=== PATIENT | female | born 1960 | race Two or more races ===

== ENCOUNTER 2023-03-02 17:16 | Emergency (ER) | payer MEDICAID ==
[~2023-03-02] VITALS: Ht 162.6 cm; Wt 64.3 kg
[2023-03-02 17:37] VITALS: BP 192/88; PULSE 110; RESP 20; O2SAT 95
[2023-03-02] MEDS ORDERED: KETOROLAC TROMETH 60MG/2ML VIAL IM ONE (19:15)
== END 2023-03-02 23:04 | disposition home or self-care (01) ==
LOC: ER 17:16
DX: R51.9 Headache, unspecified (principal); I10 Essential (primary) hypertension; K21.9 Gastro-esophageal reflux disease without esophagitis; E78.5 Hyperlipidemia, unspecified